=== PATIENT | female | born 1975 | race Caucasian/White ===

== ENCOUNTER → 2016-06-01 | Outpatient (CLI) | payer BC ==
--- NOTE | 2016-06-01 14:00 | US ---
Complete Pelvic Sonography (Transabdominal and Endovaginal) Clinical History: 40-year-old female with intermittent irregular bleeding for two years. The patient has tried two separate IUDs (Copper and Mirena), last removed in July or August 2015 with persistent irregular bleeding. The patient is G2, P2 with a history of ovarian cysts. ICD-10 Diagnostic Code: N92.6. Technique: A curvilinear 5 MHz transducer was used to sonographically evaluate the pelvis, using a fu ll urinary bladder as window. To better assess the uterine architecture and the adnexal structures, e ndovaginal pelvic sonography was also performed. Color Doppler and spectral Doppler are used. Cine cl ips were acquired through the left ovary. Comparison Study: Pelvic sonography, dated August 23, 2013. Findings: Transabdominal Pelvic Sonography: The uterus is normal in size, shape, and position, measuring 8.7 x 5.8 x 3.9 cm. The endometrium appears normal. The right ovary appears normal, and the left ovary is n otable for a dominant simple-appearing anechoic cyst. There is no free fluid. Intraovarian vascular f low is documented. Endovaginal Pelvic Sonography: The endometrial thickness is normal, measuring 3.9 mm. There is no foc al myometrial abnormality. There is a tiny nabothian cyst at the level of the cervix, a benign findin g. The right ovary measures 1.7 x 1.1 x 2.5 cm, and intraovarian arterial and venous flow is document ed with a resistive index of 0.59. The left ovary measures 3.7 x 3.2 x 4.7 cm, and contains a 3.7 x 2 .9 x 3.8 cm simple anechoic cyst with through-transmission. There is no intrinsic septation, debris, or mural nodularity. Arterial and venous flow is documented with a resistive index of 0.43. There is no solid adnexal mass, torsion, or free fluid. There is also a tiny left paraovarian cystic structure measuring 1.6 x 0.9 cm. Impression: 1. Normal appearance of the uterus, endometrium, and the right ovary. 2. There is a benign-appearing 3.8 cm simple cyst in the left ovary, with no torsion or free fluid.
== END ==
LOC: CIMAGING 10:58
PROVIDERS: ATTEND Family Medicine
DX: N92.6 Irregular menstruation, unspecified (principal); N83.292 Other ovarian cyst, left side
CPT/HCPCS: 76856-PO